=== PATIENT | female | born 1960 | race Caucasian/White ===

== ENCOUNTER → 2022-11-12 10:40 | Outpatient (BNVA) | payer OTHER, SELFPAY | PROVIDERS: Visit Provider Internal Medicine | DX: S60.222A Contusion of left hand, initial encounter (principal); S80.02XA Contusion of left knee, initial encounter; S90.32XA Contusion of left foot, initial encounter; W10.9XXA Fall (on) (from) unspecified stairs and steps, initial encounter | CPT/HCPCS: 73130; 73564; 73630; 99203 ==

== ENCOUNTER → 2022-11-19 09:29 | Outpatient (BNVA) | payer OTHER, SELFPAY | PROVIDERS: Visit Provider Internal Medicine | DX: S62.345D Nondisplaced fracture of base of fourth metacarpal bone, left hand, subsequent encounter for fracture with routine healing (principal); S80.02XD Contusion of left knee, subsequent encounter; W18.30XD Fall on same level, unspecified, subsequent encounter | CPT/HCPCS: 99213 ==

== ENCOUNTER 2022-11-26 05:53 | Outpatient (REF) | payer OTHER, SELFPAY ==
--- NOTE | ~2022-11-26 | XR_ITS ---
EXAMINATION: XR HAND, LEFT CLINICAL INFORMATION: Left hand pain COMPARISON: 11/12/2022 TECHNIQUE: PA, lateral, and oblique views of the left hand. FINDINGS: Redemonstration of nondisplaced fracture of the base of the fourth proximal phalanx. There is a possible nondisplaced fracture at the base of the third proximal phalanx with intra-articular extension. XR/XR hand LT min 3V IMPRESSION: Redemonstration of nondisplaced fracture of the base of the fourth proximal phalanx. There is a possible nondisplaced fracture at the base of the third proximal phalanx with intra-articular extension.
== END 2022-11-26 05:54 | disposition home or self-care (01) ==
LOC: HO.HOSX 05:53
PROVIDERS: Visit Provider Physician Assistant
DX: S62.605A Fracture of unspecified phalanx of left ring finger, initial encounter for closed fracture (principal)
CPT/HCPCS: 73130; 99202

== ENCOUNTER → 2022-11-27 09:15 | Outpatient (BNVA) | payer OTHER, SELFPAY | PROVIDERS: Visit Provider Internal Medicine | DX: M79.645 Pain in left finger(s) (principal) | CPT/HCPCS: 99213 ==

== ENCOUNTER 2022-12-14 05:55 | Outpatient (REF) | payer OTHER, SELFPAY ==
--- NOTE | ~2022-12-14 | XR_ITS ---
EXAMINATION: XR HAND, LEFT CLINICAL INFORMATION: Pain. COMPARISON: Radiographs dated 11/12/2022 and 11/26/2022. TECHNIQUE: PA, lateral, and oblique views of the left hand. FINDINGS: There is bony demineralization. A healing fracture is noted of the base of the left fourth proximal phalanx, in stable alignment. The fracture line shows intra-articular extension is now very faint. No new fracture or dislocation is seen. A marginal erosion is noted of the head of the left fourth middle phalanx. A lesser marginal erosion is questioned of the head of the left fifth middle phalanx. There is mild osteoarthritic change of the interphalangeal joint of the thumb and of the first carpometacarpal joint. A minimal erosion is suspected of the ulnar styloid. No focal soft tissue swelling, gas or foreign body is seen. XR/XR hand LT min 3V IMPRESSION: 1. A healing fracture is noted of the base of the left fourth proximal phalanx. The fracture line is now very faint. 2. There is mild osteoarthritic change of the interphalangeal joint of the left thumb and of the left first carpometacarpal joint. 3. Subtle marginal erosions are noted of the fourth and fifth distal interphalangeal joints and of the ulnar styloid, as detailed. The possibility of rheumatoid arthritis is raised. Please correlate clinically.
== END 2022-12-14 05:56 | disposition home or self-care (01) ==
LOC: HO.HOSX 05:55
PROVIDERS: Visit Provider Physician Assistant
DX: S62.605D Fracture of unspecified phalanx of left ring finger, subsequent encounter for fracture with routine healing (principal)
CPT/HCPCS: 26720; 29085; 73130

== ENCOUNTER 2023-01-06 08:08 | Outpatient (REF) | payer OTHER, SELFPAY ==
--- NOTE | ~2023-01-06 | XR_ITS ---
EXAMINATION: XR HAND, LEFT CLINICAL INFORMATION: Pain COMPARISON: Hand radiographs 11/26/2022 and 12/14/2022 TECHNIQUE: 3 views of the hand FINDINGS: Decreased conspicuity of the fracture of the base of the fourth proximal phalanx with bridging bony callus formation suggesting interval healing. The previously described fracture at the base of the third proximal phalanx is not definitively discerned. Generalized osteopenia. No new fracture or dislocation. Mild degenerative changes of the proximal and distal interphalangeal joints and first carpometacarpal joint. Possible small erosions noted at the fourth and fifth DIP joints. Soft tissues are unremarkable. XR/XR hand LT min 3V IMPRESSION: 1. Decreased conspicuity of the fracture of the base of the fourth proximal phalanx with bridging bony callus formation suggesting interval healing. 2. The previously described fracture at the base of the third proximal phalanx is not definitively discerned. 3. Generalized osteopenia. 4. Possible small erosions noted at the fourth and fifth DIP joints, which can be seen in the setting of erosive arthropathy. 5. Mild degenerative changes of the hand and wrist, as above detailed.
== END 2023-01-06 08:09 | disposition home or self-care (01) ==
LOC: HO.HOSX 08:08
PROVIDERS: Visit Provider Physician Assistant
DX: S62.605D Fracture of unspecified phalanx of left ring finger, subsequent encounter for fracture with routine healing (principal)
CPT/HCPCS: 73130

== ENCOUNTER → 2023-02-03 11:12 | Outpatient (BNVA) | payer OTHER, SELFPAY | PROVIDERS: PCP Internal Medicine; Visit Provider Physician Assistant ==

== ENCOUNTER 2023-03-15 08:00 | Outpatient (RCR) | payer OTHER, SELFPAY ==
--- NOTE | 2023-03-15 11:31 | MHC.OT.DC ---
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 Goals met Electronically Signed By: Tish Roberson OT CHT CLT Reviewed/agree with student documentation: Therapist: Please Sign and return to therapist, thank you for your referral.
== END 2023-03-15 11:32 | disposition home or self-care (01) ==
LOC: HO.OT 08:00
PROVIDERS: PCP Internal Medicine; Visit Provider Physician Assistant
DX: S62.605D Fracture of unspecified phalanx of left ring finger, subsequent encounter for fracture with routine healing (principal)
CPT/HCPCS: 97033; 97035; 97110; 97165; 97166; 97760